=== PATIENT | male | born 1970 | race Caucasian/White ===

== ENCOUNTER 2023-11-12 04:00 | Emergency (ER) | payer SELFPAY ==
[~2023-11-12] VITALS: Ht 165.1 cm; Wt 68.0 kg
[2023-11-12 04:09] VITALS: BP 177/99; PULSE 133; RESP 18; TEMP 98.3; O2SAT 99
[2023-11-12] MEDS ORDERED: NACL 0.9% 1,000 ML IV ONE (04:10)
== END 2023-11-12 04:32 | disposition left against medical advice (07) ==
LOC: MED 04:00
DX: R00.0 Tachycardia, unspecified (principal); I10 Essential (primary) hypertension
CPT/HCPCS: 99283